=== PATIENT | female | born 1960 | race Caucasian/White ===

== ENCOUNTER 2016-08-08 16:05 | Observation (INO) | payer OTHER ==
[~2016-08-08] VITALS: Ht 157.5 cm; Wt 91.5 kg
[~2016-08-08 16:05] MED LIST: NAPROXEN500 MG PO
[2016-08-08 17:34] LABS: EOSINOPHIL (%) 2.4 % (0-5); EOSINOPHIL COUNT 0.3 K/uL (0-0.3); HEMATOCRIT 41.6 % (36.0-46.0); IMMATURE GRANULOCYTE (%) 0.6 % (0.0-0.7); IMMATURE GRANULOCYTE COUNT 0.9 K/uL; LYMPHOCYTE COUNT 2.3 K/uL (1.0-2.8); MCHC 31.7 G/DL (30.0-36.0); MCV 85.2 FL (83-99); MEAN PLAT.VOLUME 9.9 uM^3 (9.5-12.4); MONOCYTE (%) 6.7 % (3-12); MONOCYTE COUNT 0.9 K/uL (0-0.8); NEUTROPHIL (%) 73.9 % (45-76); NEUTROPHIL COUNT 10.3 K/uL (1.8-6.4); PLATELET COUNT 356 K/uL (156-360); RBC DIS.WIDTH-CV 14.7 % (11.8-14.6); RBC DIS.WIDTH-SD 44.7 % (39-53); RED BLOOD COUNT 4.88 M/uL (3.80-5.20); WHITE BLOOD COUNT 13.9 K/uL (4.1-10.2)
[2016-08-08 18:03] LABS: TROP-I INTERPRETATION NEGATIVE; TROPONIN-I 0.04 ng/mL (0.0-0.30)
[2016-08-08] MEDS ORDERED: CELEXA40 MG PO (20:32)
[2016-08-08] MEDS ORDERED: PROAIR HFA8.5 GM IH (20:33)
[2016-08-08] MEDS ORDERED: VALTREX50 MG/ML PO (20:33)
[2016-08-08] MEDS ORDERED: WELLBUTRIN SR100 MG PO (20:33)
[2016-08-08] MEDS ORDERED: DESYREL100 MG PO (20:33)
[2016-08-08] MEDS ORDERED: OMEPRAZOLE40 M1 PO (20:34)
[2016-08-08] MEDS ORDERED: GLUCOPHAGE1000 MG PO (20:34)
[2016-08-08] MEDS ORDERED: DIOVAN HCT 11 TABLET PO (20:34)
[2016-08-08 20:37] LABS: POTASSIUM ND MEQ/L (3.7-5.4)
[2016-08-08] MEDS ORDERED: NATURAL BALANCE15 M1 RIGHT EYE (20:37)
[2016-08-08 20:44] LABS: SODIUM 135 MEQ/L (136-147)
[2016-08-08 20:45] LABS: CHLORIDE 94 MEQ/L (99-109); TOTAL BILIRUBIN 0.5 MG/DL (0.0-1.0)
[2016-08-08 20:47] LABS: ALKALINE PHOSPHATASE 92 IU/L (3-129); GFR ESTIMATE (CALCULATED) > 59 mL/min/; GLUCOSE 247 mg/dL (70-99); UREA NITROGEN (BUN) 14 mg/dL (9-23)
[2016-08-08 20:59] LABS: POTASSIUM 3.7 mEq/L (3.7-5.4)
[2016-08-08 21:06] LABS: NO-CHARGE AST (GOT) 13 IU/L (2-34)
[2016-08-09] VITALS (7 sets, daily range): BP systolic 115–187; BP diastolic 64–111
[2016-08-09 00:29] LABS: D-DIMER ELISA 0.27 mg/L FEU (< 0.57)
[2016-08-09 00:52] LABS: POINT-OF-CARE METER ID UU14162513
[2016-08-09 01:07] LABS: TROP-I INTERPRETATION INDETERMINATE; TROPONIN-I 0.54 ng/mL (0.0-0.30)
[2016-08-09 06:05] LABS: MCH 27.3 PG (29.0-34.0); MCHC 31.6 G/DL (30.0-36.0); MCV 86.4 FL (83-99); MEAN PLAT.VOLUME 10.4 uM^3 (9.5-12.4); PLATELET COUNT 350 K/uL (156-360); RBC DIS.WIDTH-CV 14.9 % (11.8-14.6); RBC DIS.WIDTH-SD 46.9 % (39-53); WHITE BLOOD COUNT 14.8 K/uL (4.1-10.2)
[2016-08-09 06:28] LABS: TROP-I INTERPRETATION INDETERMINATE; TROPONIN-I 0.54 ng/mL (0.0-0.30)
[2016-08-09 06:30] LABS: ANION GAP 11 MEQ/L (2-14); CHLORIDE 94 MEQ/L (99-109); GFR ESTIMATE (CALCULATED) > 59 mL/min/; GLUCOSE 316 mg/dL (70-99); SAMPLE HEMOLYSIS CHECK 0; SAMPLE ICTERIC CHECK 0; SAMPLE LIPEMIA CHECK 0; SODIUM 135 MEQ/L (136-147); UREA NITROGEN (BUN) 14 mg/dL (9-23)
[2016-08-09 11:28] LABS: INTER. NORMALIZED RATIO 1.1; PROTHROMBIN TIME 10.7 (9.2-11.2)
[2016-08-09 12:06] LABS: TROP-I INTERPRETATION INDETERMINATE; TROPONIN-I 0.48 ng/mL (0.0-0.30)
[2016-08-09 14:15] LABS: POINT-OF-CARE METER ID UU13113696; POINT-OF-CARE USER ID HMLCJM07
[2016-08-09 16:22] LABS: POINT-OF-CARE METER ID UU13113819
[2016-08-09 19:17] LABS: POINT-OF-CARE METER ID UU13113819
[2016-08-09 21:45] LABS: POINT-OF-CARE METER ID UU13113698
[2016-08-10 05:25] VITALS: BP 142/81
[2016-08-10 07:18] LABS: HEMATOCRIT 38.5 % (36.0-46.0); MCH 27.5 PG (29.0-34.0); MCHC 30.9 G/DL (30.0-36.0); MCV 88.9 FL (83-99); MEAN PLAT.VOLUME 10.3 uM^3 (9.5-12.4); PLATELET COUNT 273 K/uL (156-360); RBC DIS.WIDTH-CV 15.3 % (11.8-14.6); RBC DIS.WIDTH-SD 49.3 % (39-53); RED BLOOD COUNT 4.33 M/uL (3.80-5.20); WHITE BLOOD COUNT 9.2 K/uL (4.1-10.2)
[2016-08-10 07:38] VITALS: BP 117/57
[2016-08-10 07:46] LABS: POINT-OF-CARE METER ID UU13113781
[2016-08-10 11:46] VITALS: BP 132/65
[2016-08-10] MEDS ORDERED: LOPRESSOR25 MG PO (13:31)
[2016-08-10] MEDS ORDERED: ATORVASTATIN CA40 MG PO (13:32)
[2016-08-10] MEDS ORDERED: Ocean Nasal 0.65% BOTH NARES (13:36)
[2016-08-10] MEDS ORDERED: AUGMENTIN875 MG PO (13:37)
== END 2016-08-10 15:52 | disposition home or self-care (01) ==
LOC: EME 16:05 → EDOF 22:37 → 5WEST 22:37 → 4EAST 08-09 20:09
PROVIDERS: Emergency Medicine; Hospitalist; Internal Medicine; Nurse Practitioner Adult Health; Student in an Organized Health Care Education/Training Program
DX: R04.0 Epistaxis (principal); I20.0 Unstable angina; I42.9 Cardiomyopathy, unspecified; E11.9 Type 2 diabetes mellitus without complications; I10 Essential (primary) hypertension; F32.9 Major depressive disorder, single episode, unspecified; E66.01 Morbid (severe) obesity due to excess calories; Z68.37 Body mass index [BMI] 37.0-37.9, adult; E78.5 Hyperlipidemia, unspecified; Z82.49 Family history of ischemic heart disease and other diseases of the circulatory system; Z77.22 Contact with and (suspected) exposure to environmental tobacco smoke (acute) (chronic); Z79.84 Long term (current) use of oral hypoglycemic drugs; Z82.5 Family history of asthma and other chronic lower respiratory diseases
CPT/HCPCS: 70450; 70486; 71020; 80048; 80053; 82948; 84484; 84999; 85025; 85027; 85379; 85610; 85730; 93005; 93306; 99202; 99281; 99285; C1750; C1769; C1887; G0378; J0295; J1644; J1815; J2250; J2270; J2405; J3010; J7050

== ENCOUNTER 2018-02-15 12:07 | Emergency (ER) | payer OTHER ==
[~2018-02-15] VITALS: Ht 157.5 cm; Wt 97.3 kg
[~2018-02-15 12:07] MED LIST changes: +ATORVASTATIN CA40 MG PO; +AUGMENTIN875 MG PO; +CELEXA40 MG PO; +DESYREL100 MG PO; +DIOVAN HCT 11 TABLET PO; +GLUCOPHAGE1000 MG PO; +LOPRESSOR25 MG PO; +NATURAL BALANCE15 M1 RIGHT EYE; +OMEPRAZOLE40 M1 PO; +Ocean Nasal 0.65% BOTH NARES; +PROAIR HFA8.5 GM IH; +VALTREX50 MG/ML PO; +WELLBUTRIN SR100 MG PO
[2018-02-15 13:09] LABS: BASOPHIL (%) 0.2 % (0-1); EOSINOPHIL (%) 0.7 % (0-5); EOSINOPHIL COUNT 0.1 K/uL (0-0.3); HEMATOCRIT 38.1 % (36.0-46.0); HEMOGLOBIN 12.9 G/DL (11.9-15.5); IMMATURE GRANULOCYTE (%) 0.4 % (0.0-0.7); LYMPHOCYTE (%) 12.5 % (15-42); LYMPHOCYTE COUNT 1.5 K/uL (1.0-2.8); MCH 29.5 PG (29.0-34.0); MCHC 33.9 G/DL (30.0-36.0); MONOCYTE (%) 6.1 % (3-12); MONOCYTE COUNT 0.8 K/uL (0-0.8); NEUTROPHIL (%) 80.1 % (45-76); NEUTROPHIL COUNT 9.8 K/uL (1.8-6.4); PLATELET COUNT 341 K/uL (156-360); RBC DIS.WIDTH-CV 12.9 % (11.8-14.6); RBC DIS.WIDTH-SD 40.5 % (39-53); RED BLOOD COUNT 4.38 M/uL (3.80-5.20); WHITE BLOOD COUNT 12.3 K/uL (4.1-10.2)
[2018-02-15 13:15] LABS: INTER. NORMALIZED RATIO 1.1
[2018-02-15 13:17] LABS: PTT 26.9 SEC (25-37)
[2018-02-15 13:18] LABS: CHLORIDE 103 mEq/L (99-109); POTASSIUM 3.8 mEq/L (3.7-5.4); SODIUM 140 mEq/L (136-147)
[2018-02-15 13:19] LABS: GLUCOSE 150 mg/dL (70-99)
[2018-02-15 13:23] LABS: CREATININE 0.8 mg/dL (0.6-1.3); GFR ESTIMATE (CALCULATED) > 59 mL/min/
[2018-02-15 13:24] LABS: UREA NITROGEN (BUN) 11 mg/dL (9-23)
[2018-02-15 13:29] LABS: TROP-I INTERPRETATION NEGATIVE; TROPONIN-I < 0.01 ng/mL (0.0-0.30)
[2018-02-15 16:00] VITALS: BP 159/102
== END 2018-02-15 16:00 | disposition home or self-care (01) ==
LOC: EME 12:07
PROVIDERS: Emergency Medicine
DX: I10 Essential (primary) hypertension (principal); E11.9 Type 2 diabetes mellitus without complications; K21.9 Gastro-esophageal reflux disease without esophagitis; F32.9 Major depressive disorder, single episode, unspecified; F41.9 Anxiety disorder, unspecified; Z87.442 Personal history of urinary calculi; Z79.84 Long term (current) use of oral hypoglycemic drugs
CPT/HCPCS: 70450; 71045; 80048; 84484; 85025; 85610; 85730; 93005; 99281; 99285